=== PATIENT | female | born 1985 ===

== ENCOUNTER 2016-06-05 08:50 | Inpatient (IN) | payer OTHER ==
[~2016-06-05] VITALS: Ht 160 cm; Wt 115.7 kg
[2016-06-05 09:18] VITALS: BP 114/71
[2016-06-05 09:56] LABS: ABSOLUTE BASOPHIL COUNT 0 /CUMM (0.0-0.2); ABSOLUTE EOSINOPHIL COUNT 0.2 /CUMM (0.0-0.7); ABSOLUTE GRANULOCYTE CT 9.8 /CUMM (1.4-6.5); ABSOLUTE LYMPH COUNT 2.7 /CUMM (1.2-3.4); ABSOLUTE MONOCYTE COUNT 0.8 /CUMM (0.10-0.60); BASOPHIL % 0.2 % (0.0-2.0); EOSINOPHIL % 1.4 % (0-5); GRANULOCYTE % 72.2 % (42.2-75.2); MEAN CORPUSCULAR VOLUME 82.3 FL (81.0-99.0); MEAN PLATELET VOLUME 8.2 FL (7.4-10.4); PLATELET COUNT 285 /CUMM (130-400); RBC DISTRIBUTION WIDTH 15.2 % (11.5-14.5); RED BLOOD CELL CT 4.85 /CUMM (4.20-5.40); WHITE BLOOD CELL COUNT 13.6 /CUMM (4.8-10.8)
--- NOTE | 2016-06-05 09:56 | History & Physical ---
General Information and HPI MD Statement: I have seen and personally examined RABIA VELASQUEZ and documented this H&P. The patient is a 30 year old female at [41] weeks and [1] days gestation who presented with a chief complaint of [IOL]. Source of Information: patient Exam Limitations: no limitations History of Present Illness: 30yo, 41 1/7wks, here for IOL due to postdates. pt has no complaints today. denies afeels ctxs, no vaginal bleeidng, noLOF. care started at 9 wks, uncomplicated thus far, elevated GCT, normal GTT , normal HbA1C at 37 wks. 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 Home Who Do You Live With? spouse Primary Language: [place]al[place] Smoking Status: Former Smoker ETOH Use: denies use Illicit Drug Use: denies illicit drug use Review of Systems Review of Systems Constitutional: Reports: no symptoms. EENTM: Reports: no symptoms. Cardiovascular: Reports: no symptoms. Respiratory: Reports: no symptoms. GI: Reports: no symptoms. Genitourinary: Reports: see HPI. Musculoskeletal: Reports: no symptoms. Skin: Reports: no symptoms. Neurological/Psychological: Reports: no symptoms. Hematologic/Endocrine: Reports: no symptoms. Immunologic/Allergic: Reports: no symptoms. All Other Systems: Reviewed and Negative Date of LMP: 08/15/15 Post Menopausal: No Exam & Diagnostic Data Last 24 Hrs of Vital Signs/I&O Vital Signs Date Time Temp Pulse Resp B/P Pulse O2 O2 Flow FiO2 Ox Delivery Rate 06/05 0918 114/71 Intake & Output 06/05 1600 06/05 0800 04 0000 Intake Total Output Total Balance Patient 115.666 kg Weight Obstetric Exam Wgt Gained During : 44lbs Pelvimetry: adequate Dilation (cm): 0 Effacement (%): 60 Station: -3 Membranes: intact Fluid: unknown Fundal Height (cm): 40 Multiple Gestation? No Contractions: irregular Infant #1 - FHR Baseline: 150 Category: 1 Estimated Weight: 3500g Presentation: vertex Patient for Induction? Yes Childers Score Childers Score Response Value Cervix Position: posterior 0 Cervix Consistency: medium 1 Cervix Effacement: 60-70% 2 Cervix Dilation: closed 0 Cervix Station: -3 0 Total 3 Physical Exam: VSS abdomen: gravid, soft, nontender. Ext: DCT (-) Labs Blood Type & Rh: o positive Antibody Screen: negative Hct/Hgb & Platelets #1: 13.6/41.6%,[id number] Hct/Hgb & Platelets #2: 12.8/38.2%,[id number] Rubella: immune VDRL #1: negative VDRL #2: negative HbsAg: negative HIV #1: negative HIV #2 negative 1 Hr P 3 Hr P/179/166/119 Group B Strep: negative Initial Ultrasound: IUP at 9 wks Anatomy Ultrasound: negative Ultrasound for EFW: 7lb7oz at 38 wks Genetic Testing: normal Last 24 Hrs of Labs/Sean: Laboratory Tests 06/05/16 0923: Urine Color Pending, Urine Clarity Pending, Urine pH Pending, Ur Specific Troy Pending, Urine Protein Pending, Urine Ketones Pending, Urine Nitrite Pending, Urine Bilirubin Pending, Urine Urobilinogen Pending, Ur Leukocyte Esterase Pending, Ur Microscopic Pending, Urine Hemoglobin Pending, Urine Glucose Pending 06/05/16 0922: CBC w Diff Pending, WBC Pending, RBC Pending, Hgb Pending, Hct Pending, MCV Pending, MCH Pending, RDW Pending, Plt Count Pending, MPV Pending, PUBS MCHC Pending Assessment/Plan Assessment/Plan: 30yo, 41 1/7wks, IOL for postdates, obesity. 1. admit pt, admission labs. 2. R/B/A of IOL and misoprostol for IOL d/w pt, she undertsand. all questions answered, informed consent obtained. 1st dose of cytotec 25mcg placed into vagina at 10:45AM 3. will monitor closely As Ranked By This Provider Problem List: 1. 2. Post-dates Core Measures/Miscellaneous Venous Thromboembolism VTE Risk Factors: / VTE Contraindications: No Contraindications VTE Diagnosis: No Beta Tiana Is Beta Tiana a Home Med? No Antibiotics Is Patient on Antibiotics? No Attending MD Review Statement Attending Statement Attending MD Statement: examined this patient, discussed with family, discussed w/nursing
--- NOTE | 2016-06-05 16:07 | PN- OBGYN ---
Surgical Brief Attending Note Brief Attending Note: pt has no complaints. on TOCO: ctxs every 3-4 min. FHR cat.I VE defered will hold 2nd dose of cytotec, monitor closely
--- NOTE | 2016-06-06 09:52 | PN- OBGYN ---
Surgical Brief Attending Note Brief Attending Note: Pt slept well overnight seems patient w/ the induction plan ?? trickle of small amount of fluid overnight Afebrile VSS Abd benign no HSM nontender Uterus Gravid Est F WT 8#4 VTX irreg contractions FHR 130" baseline Cat 1 VE: amnisure taken cx 1 cm / 90 % -3 station Day #2 postdates induction BMI 45 s/p Miso on day 1 Plan ALPs when in bed Pitocin per protocal ck amnisure results NEG (Gr B Str NEG) follow closely Dede Suarez MD
--- NOTE | 2016-06-06 21:40 | PN- OBGYN ---
Surgical Brief Attending Note Brief Attending Note: update: Day #2 induction -IV Pitocin Pt progressed to 3 cm @ 15:00 and received her epidural. recheck @ 19:00 5 cm/ 100% /0 station AROM Mod meconium stained fluid Pitocin stopped after AROM to lessen the frequency of contractions @ 21:00 - FHR baseline 152 mean variability @ 8- 10 BMP CAT I. On 6 mu Pitocin contractions were Q 2 to 3 min - OFF pitocin contractions are Q 3 minutes Progress in labor: goal is 3 contractions in 10 min follow FHR closely Pedi notified of Meconium stained fluid. alireza in 2 hrs Dede Suarez MD
--- NOTE | 2016-06-06 23:16 | PN- OBGYN ---
Surgical Brief Attending Note Brief Attending Note: UPDATE: Pitocin @ 2 mu FHR 150 Cat 1 acccells with exam contractions Q 2 to 3 min CX 6 - 7 cm, min swelling @ 11 - 12 oclock IUPC placed Reassuring FHR Some progress in labor - IUPC to better assess the contraction pattern Follow closely RE- Check in 2 hrs Dede Suarez MD
--- NOTE | 2016-06-07 03:42 | PN- OBGYN ---
Surgical Brief Attending Note Brief Attending Note: UPDATE: CTSP @ 02:10 Pt very uncomfortable- increased pain w/ contractions, vaginal discomfort "due to IUPC". Mat Temp 101.5 - mat pulse > 110 bpm, and tachcardia @ 180 bpm. Pitocin @ 4 mu, contraction Q 2 min, Vag exam fully, +2/+3 station Pitocin decreased to 2 mu, Epidural bolused, IVF bolus x 500 ml, IV Ofrimev, mat O2 given, IUPC removed. Now pt more comfortable T99.8 FHR 150's baseline w/ 8 -10 BPM variabilty and accellerations plan is to try pushing in the next hour follow FHR closely. [facility] Dede Suarez MD
--- NOTE | 2016-06-07 06:43 | Labor & Delivery Summary ---
Delivery Summary Section: Section: primary Indication: Cat II tracing failure to descend Anesthesia: epidural Placenta: Placenta: normal, 3 vessel, manual Anesthesia: epidural Cord PH Value: A 7.18 V 7.28 Baby's Weight: 8# 6OZ 3800 Apgars - 1 Min: 8 Apgars - 5 Min: 8 Additional Comments: Low segment atony. EBL 1200 ml low segment extensions Pitocin , methergine, intrauterine hemabate Ambrosio O'Hungerford stitch on LT partial single layer closure NOT A candidate
--- NOTE | 2016-06-07 07:21 | Operative Report ---
Operative/Inv Procedure Report Surgery Date: 06/07/16 Name of Procedure: Primary low cervical transverse section Placement of O'Tipton stitch on the left-hand side, partial single-layer closure Pre-Operative Diagnosis: Persistent category 2 tracing, failure to descend. BMI 45 Post-Operative Diagnosis: Same plus low segment atony, patient not a candidate for due to partial single layer closure Estimated Blood Loss: 1200 ML Surgeon/Market Researcher: Nickie Suarez surgeon, media center assistant Magno FISHER Anesthesia: epidural Monitors: Blood pressure cuff EKG electrodes pulse oximeter IV Fluids: 1800 crystalloid Implants: None Urine Output: 1000 ML Drains: Harris Specimens: Placenta Microbiology: None Tourniquet: None Complications: Low segment atony, thin low uterine segment with low segment extensions Condition: Good Operative Indication: 30-year-old 2 day induction for 41+ weeks, maternal BMI of 45. Persistent category 2 tracing with failure to descend. Operative/Procedure Note Note: Patient was brought to the OR and transferred to the table. Patient was given 2 g Kefzol in the OR She was placed in dorsal supine position with a right hip wedge. From the labor room where she previously had a Harris catheter placed, and pneumatic compression boots on her lower extremities. Epidural was topped up prior to arrival in the OR. Timeout was discussed by the team and agreed upon. Patient was prepped and draped in the usual sterile fashion. After a good level of analgesia, transverse incision was made in the skin after infiltration with bupivacaine. This transverse incision was placed 2 fingerbreadths above the symphysis and was carried down to the fascia. Fascia was incised transversely. Rectus muscles divided longitudinally. The parietal peritoneum was identified elevated and entered and divided both vertically and transversely. The utero vesicular fold the bladder peritoneum was incised and the bladder was reflected inferiorly. Transverse incision was made in the low uterine segment the uterine cavity was entered bluntly meconium-stained fluid was noted. Deflexed OP presentation was noted in the pelvis. Hand was introduced into the uterus and low uterine segment had was carefully flexed and brought through the uterine incision. Mouth and nasopharynx bulb suctioned on the intra-abdominal wall. Rest of infant's body was delivered without complication at 5:11 on 06/07/2016.. Umbilical cord was triply clamped cut the infant was handed to pediatric team for evaluation I viable female weight 8 lbs. 6 oz. 3800 g Apgars 10/07/8. Arterial pH 7.18 venous pH 7.28. Placenta failed spontaneous delivery and manual extraction was performed. The uterus was exteriorized, draped with a wet lap pad. Due to anticipated low segment atony she was given a dose of Methergine and in addition to the Pitocin at 30 mU/L, with delivery of the placenta. The uterine cavity was wiped clean with a wet lap pad. The uterus was then draped with wet lap pad the uterine incision was inspected. Angles were grasped with Sousa's there was two low segment extensions 1 in the midline 1 in the right lower quadrant. Uterine incision was closed with a single-layer closure initially. There was still significant bleeding on the left-hand side near the angle of the closure of the uterine incision. O'Tipton stitch was performed on this left-hand side, and this suture stitch was tied securely. Persistent low segment atony was also noted so an intra-uterine injection of Hemabate was given. Reasonable hemostasis was noted. Partial second layer closure with interrupted suture was obtained. But due to the very thin low uterine segment below the level of the incision decision was made not to do a complete double-layer closure. There was some bleeding due to decidual tissue on the back of the uterus that was managed with Ambrosio, and more of the Ambrosio was also applied over the uterine incision to ensure reasonable hemostasis. Uterus returned the abdominal pelvic cavity, then the pelvis was irrigated and the fluid was aspirated. Second dose of the Ambrosio was utilized over the uterine incision after irrigation and evacuation of fluid. Good hemostasis continued. Parietal peritoneum was closed with running suture, rectus muscle was reapproximated midline with horizontal mattress stitch. Fascia closed with 2 separate segments of running intermittent locking suture. Subcutaneous tissue was irrigated fluid was aspirated subcutaneous tissue closed with Arron cut. Skin edges reapproximated with Monocryl. At completion of procedure sponge needle and instrument count were correct 4. Dressing was applied to the abdominal wall incision. Vaginal exam after completion the procedure showed no significant blood or clot within the vaginal vault. Patient was taken recovery room in good condition. Findings: Time of delivery 5:11 on 06/07/2017 live viable female infant 8 lbs. 6 oz. 3800 g. Apgars 8, 8, 8. Arterial pH 7.18 venous pH 7.28. Deflexed OP presentation. Significant low segment atony that ultimately responded to IV Pitocin, intramyometrial Pitocin. IM Methergine. An intrauterine Hemabate. Cervical extensions were noted in the low segment that required specialize closure. Only a partial 2 layer uterine closure was performed. Patient is not a candidate in the next EBL 1200 ML Discharge Disposition: CC: KATEY VU,JUAN
[2016-06-07 15:21] LABS: ABSOLUTE EOSINOPHIL COUNT 0 /CUMM (0.0-0.7)
[2016-06-07 15:39] LABS: ABSOLUTE BASOPHIL COUNT 0 /CUMM (0.0-0.2); ABSOLUTE GRANULOCYTE CT 17.6 /CUMM (1.4-6.5); ABSOLUTE LYMPH COUNT 2.1 /CUMM (1.2-3.4); ABSOLUTE MONOCYTE COUNT 0.9 /CUMM (0.10-0.60); BASOPHIL % 0.1 % (0.0-2.0); EOSINOPHIL % 0.2 % (0-5); GRANULOCYTE % 84.9 % (42.2-75.2); HEMATOCRIT 38.4 % (37-47); MEAN CORPUSCULAR HGB 27.8 PG (27.0-31.0); MEAN CORPUSCULAR HGB CONC 33.3 G/DL (33.0-37.0); MEAN CORPUSCULAR VOLUME 83.4 FL (81.0-99.0); MEAN PLATELET VOLUME 8.4 FL (7.4-10.4); PLATELET COUNT 259 /CUMM (130-400); RBC DISTRIBUTION WIDTH 15.8 % (11.5-14.5)
[2016-06-07 15:43] LABS: WHITE BLOOD CELL COUNT 20.7 /CUMM (4.8-10.8)
[2016-06-08 09:22] LABS: ABSOLUTE BASOPHIL COUNT 0 /CUMM (0.0-0.2); ABSOLUTE EOSINOPHIL COUNT 0.1 /CUMM (0.0-0.7); ABSOLUTE GRANULOCYTE CT 16.8 /CUMM (1.4-6.5); ABSOLUTE LYMPH COUNT 1.9 /CUMM (1.2-3.4); ABSOLUTE MONOCYTE COUNT 1.3 /CUMM (0.10-0.60); BASOPHIL % 0.2 % (0.0-2.0); EOSINOPHIL % 0.6 % (0-5); MEAN CORPUSCULAR HGB 27.6 PG (27.0-31.0); MEAN CORPUSCULAR HGB CONC 32.5 G/DL (33.0-37.0); MEAN CORPUSCULAR VOLUME 84.8 FL (81.0-99.0); MEAN PLATELET VOLUME 8.1 FL (7.4-10.4); PLATELET COUNT 243 /CUMM (130-400); RBC DISTRIBUTION WIDTH 15.7 % (11.5-14.5); RED BLOOD CELL CT 3.87 /CUMM (4.20-5.40); WHITE BLOOD CELL COUNT 20.3 /CUMM (4.8-10.8)
[2016-06-08 09:34] LABS: HEMATOCRIT 32.8 % (37-47)
--- NOTE | 2016-06-08 10:34 | PN- OBGYN ---
Surgical Brief Attending Note Brief Attending Note: POD#1 pt is resting in bed, c/o feels much better than yesterday. tolerate diet, cabrales d/c'd am, flatus (-) PE: VSS, agfebrile since midnight. CV RRR Lungs CTA B/L Abdomen: soft, nontender, BS(+), uterus firm, fundus below umbilicus, incision D /C/I, lochia mild Ext: DCT (-) A/P: 33 yo, s/p PLTCS, POD#1 1. encourage ambulation and . 2. continue IV antibiotics till 24h afebrile. 3. pain management as needed 4. RT PP care
--- NOTE | 2016-06-09 10:41 | PN- Post Delivery/GYN ---
Subjective Subjective: AMBULATING IN ROOM AND HALLWAY - OVERALL DOING MUCH BETTER EACH DAY Review of Systems: NEG FOR CARDIAC PULMONARY GI COMPLAINTS Objective Last 24 Hrs of Vital Signs/I&O T MAX 98.7 VSS Physical Exam General Appearance Alert, Oriented X3, Cooperative, No Acute Distress Skin No Significant Lesion Cardiovascular Regular Rate Lungs Normal Air Movement Abdomen Normal Bowel Sounds, Soft, No Tenderness, No Hepatospenomegaly, FUNDUS FIRM NONTENDER 3 FB BELOW UMBILICUS INCISION CLEAN DRY INTACT Neurological Normal Gait, Normal Speech Extremities No Tenderness/Swelling Reproductive (FEMALE) Normal female genitalia, AVGE LOCHIA Current Medications: Current Medications Sig/Jose Alfredo Start time Last Medication Dose Route Stop Time Status Admin Acetaminophen 650 MG Q4P PRN 06/07 1100 AC PO Acetaminophen 1,000 MG Q6P PRN 06/07 0900 AC 06/07 N/A 1 UNIT IV 1655 Ampicillin 2,000 MG .STK-MED ONE 06/08 1631 DC IM 06/08 1632 Ampicillin 2,000 MG .STK-MED ONE 06/08 1123 DC IM 06/08 1124 Ampicillin 2,000 MG Q6 06/07 1822 DC 06/08 Sodium Chloride 100 ML IV 1749 Clindamycin 900 MG Q8H 06/08 1100 DC 06/08 Dextrose/Water 50 ML IV 1845 Diphenhydramine HCl 25 MG Q6P PRN 06/07 1000 AC 06/07 IV 2304 Docusate Sodium 100 MG .STK-MED ONE 06/08 2130 DC PO 06/08 213 Docusate Sodium 100 MG AT BEDTIME NEED.. 06/07 0645 AC 06/08 PO 2132 Enoxaparin Sodium 40 MG 1900 06/07 1900 AC 06/08 SC 1953 Gentamicin Sulfate 160 MG .STK-MED ONE 06/08 1938 DC IM 06/08 1939 Gentamicin Sulfate 160 MG .STK-MED ONE 06/08 1230 DC IM 06/08 1231 Gentamicin Sulfate 100 MG Q8H 06/07 2000 DC 06/08 Dextrose/Water 100 ML IV 195 Hydroxyzine HCl 100 MG AT BEDTIME NEED.. 06/07 1100 AC PO Ibuprofen 800 MG .STK-MED ONE 06/08 2329 DC PO 06/08 2330 Ibuprofen 800 MG .STK-MED ONE 06/08 1840 DC PO 06/08 1841 Ibuprofen 800 MG .STK-MED ONE 06/08 1243 DC PO 06/08 1244 Ibuprofen 800 MG Q6P PRN 06/07 0645 AC 06/09 PO 0545 Ketorolac 30 MG Q6P PRN 06/07 1600 DC Tromethamine IV 06/08 1559 Lactated Ringer's 1,000 ML Q8H 06/07 0645 AC 06/08 IV 0249 Magnesium Hydroxide 30 ML DAILY NEEDED PRN 06/07 0645 AC PO 06/10 0646 Metoclopramide HCl 10 MG Q6P PRN 06/07 1000 AC IV Naloxone HCl 0.2 MG .Q5 MIN PRN 06/07 1000 AC IV Oxycodone/ 1 TAB Q4P PRN 06/07 0645 AC 06/09 Acetaminophen PO 0545 Oxycodone/ 2 TAB Q4P PRN 06/07 0645 AC 06/08 Acetaminophen PO 0817 Imaging Findings: N/A Assessment/Plan Assessment/Plan STABLE POD #2 AFEBRILE OFF ANTIBIOTIC CONTINUE INCREASING AMBULATION, PO PAIN MEDS, LOVENOX LIKELY HOME IN AM IF REMAINS AFEBRILE Problem List: 1. 2. Post-dates 3. Class 3 obesity with alveolar hypoventilation and body mass index (BMI) 45.0 to 49.9 in adult 4. Failed induction, delivered, current hospitalization 5. delivery delivered 6. Postoperative fever 7. Anemia associated with acute blood loss 8. atony of uterus with hemorrhage Attending MD Review Statement Attending Statement Attending MD Statement: examined this patient, discussed with family, reviewed EMR data (avail), discussed with nursing Attending Assessment/Plan: Dede TEE MD
[2016-06-10] MEDS ORDERED: PERCOCET 5-3251 EACH PO (08:27)
[2016-06-10] MEDS ORDERED: IBUPROFEN800 M1 PO (08:27)
--- NOTE | 2016-06-10 08:30 | PN- OBGYN ---
Surgical Brief Attending Note Brief Attending Note: POD#3 pt is resting in bed, no complaints, tolerate diet, void without difficulties. flatus(+) PE: VSS CV RRR Lungs CTA B/L Abdomen: soft, nontender, uterus firm, fundus below umbilicus. incision D/C/I, Lochia mild Ext: DCT (-), edema + A/P: 30yo, s/p PLTCS, POD#3 1. encourage ambulation, encourage 2. pain management as needed 3. will d/c home , f/u in office in 2 wks and 6 wks. 4. RT PP care
--- NOTE | 2016-06-11 14:31 | Discharge Summary ---
Visit Information Visit Dates Admission Date: 06/05/16 Discharge Date: 06/10/16 Hospital Course Course Attending Physician: KATEY VU,JUAN Primary Care Physician: JOLANTA VU,MIKI [facility] Hospital Course: The patient is a 30 year old female at [41] weeks and [1] days gestation who presented with a chief complaint of [IOL]. Issues for this #1 postdates at 41 weeks 1/7 days #2 maternal BMI of 45 #3 negative shoulder screen Patient was admitted on 06/05/2016 for induction of labor. Patient received misoprostol, and had mild contractions following placement of the intravaginal medication. Patient rested overnight and on the morning of 06/06/2016 was started on Pitocin induction. Due to her BMI of 45 patient was placed in Alps during her Pitocin induction. Pt progressed to 3 cm @ 15:00 and received her epidural. recheck @ 19:00 5 cm/ 100% /0 station AROM Mod meconium stained fluid Pitocin stopped after AROM to lessen the frequency of contractions. Pitocin restarted per protocal when contractions spaced out again. CTSP @ 02:10 Pt very uncomfortable- increased pain w/ contractions, vaginal discomfort "due to IUPC". Mat Temp 101.5 - mat pulse > 110 bpm, and tachcardia @ 180 bpm. Pitocin @ 4 mu, contraction Q 2 min, Vag exam fully, +2/+3 station Pitocin decreased to 2 mu, Epidural bolused, IVF bolus x 500 ml, IV Ofrimev, mat O2 given, IUPC removed. Now pt more comfortable T99.8 FHR 150's baseline w/ 8 -10 BPM variabilty and accellerations plan is to try pushing in the next hour 04:15 06/07/2016, ELEVATION FHR TO 160-170 LOSS OF VARIABILITY. Contractions Q 3 min (pit @ 2 mu) Pt Afebrile VSS Vag exam +2/+3 - attempt @ pushing not successful - pt not able to properly push x 4 contractions. pitocin discontinued Concerning/ nonreassuring (Category II) FHR, s/p 2 hrs of laboring down. no descent of the VTX in the interim and pt not likely to push and deliver vaginally for the next 2 hrs or so. Pt is adequately hydrated, remains afebrile, has had maternal O2 for the last several hours, so there no further conservative measures to be utilized, to improve a category II tracing - so pt advised for C/ S at this point. Pt and partner agree. Cesarian section performed. Delivery @ 05:11 on 06/07/2016. Live viable female infant weight 8 lbs. 6 oz. 3800 g Apgars 8, 8, and 8. At time of delivery the baby was found to be in a deflexed OP presentation with thick meconium stained fluid was noted in the OR. The baby was handed to pediatric team for evaluation. Cord pH arterial 7.18 venous 7.28. After delivery of the placenta the uterus was exteriorized. Uterine incision showed significant atony of the low segment that initially responded to IV Pitocin intramyometrial Pitocin and IM Methergine. Uterine incision showed to cervical extensions 1 in the midline 1 on the right lateral edge of the uterine incision. The uterine incision was closed with initially a single layer running locking. There was evidence of continued low segment atony so there was an intramyometrial injection of Hemabate given. The low uterine segment was quite thin and friable so there could not be a full double layer closure. Erupted mattress sutures were used to try to bring a partial 2 layer closure. There was still continued bleeding near the left side of the uterine incision so a O'Pembroke stitch was placed on the left-hand side. Abmrosio 2 was used for hemostasis for small bleeding sites. Following closure of the abdominal wall incision patient was stable. At this point we had good hemostasis, at all levels of closure. EBL was around 1300 ML. Patient was hemodynamically dynamically stable and transferred to the area. Due to her BMI of 45 patient was maintained on Alps compression boots anytime the patient was in her hospital bed and was placed on Lovenox, 40 mg daily, starting 12 hours after delivery. In the first 12 hours postoperatively patient had a fever 101.6 so she was started on triple antibiotics. Triple antibiotics were continued until the evening of postop day #11 at that point she had been afebrile for greater than 24 hours on antibiotics. Her admission hemoglobin hematocrit was 13.6/40 postop day 1 she was 10.7 over 32.8 which was stable. Patient remained hemodynamically stable postoperatively and never required blood transfusion. By the third postoperative day she had remained afebrile, she had been easily advanced to regular diet and had full return of GI function. Her pain was controlled with by mouth pain meds. Her incision remained clean dry and intact without erythema or induration or drainage and her lochia was average. Complications: Postop fever Low segment uterine atony resulting in hemorrhage Allergies: Coded Allergies: No Known Allergies (06/05/16) Significant Procedures: 06/07/2016 primary low cervical transverse section, only a partial double layer closure, patient would not be a candidate in future pregnancies. Placement of a left-sided O'Pembroke stitch due to continued bleeding. Pertinent Lab Results: Admission hemoglobin hematocrit 13 point 6/40 normal platelet count postop day 1 hemoglobin hematocrit 10.7/32.8 with a normal platelet count Disposition Summary Disposition Principal Diagnosis: Term live child delivered Additional Diagnosis: Postdates medical induction failed. BMI of 45 Low segment uterine atony with hemorrhage Postop fever Anemia due to acute blood loss Discharge Disposition: home or self care Discharge Instructions General Discharge Information Code Status: Full Code Patient's Diet: Regular Patient's Activity: Self-limited to full activities by 6 weeks. Patient was advised for no abdominal exercises for 6 weeks Follow-Up Instructions/Appts: Patient will be seen in 2 and 6 weeks . Pelvic rest 6 weeks Medications at Discharge Discharge Medications: Start taking the following new medications: Ibuprofen (Ibuprofen) 800 MG TABLET 800 Milligram ORAL EVERY SIX HOURS NEEDED as needed for UTERINE CRAMPING Qty = 30 No Refills Comments: Last Taken:06/10/16 Time:641 Oxycodone HCl/Acetaminophen (Percocet 5-325 MG Tablet) 5 MG-325 MG TABLET 2 Tablet ORAL EVERY 4 HOURS NEEDED as needed for PAIN SCALE 7-10 (SEVERE) Qty = 30 No Refills Comments: Last Taken:06/10/16 Time:641 Copies To: KATEY VU,JUAN
--- NOTE | 2016-06-11 14:41 | PN- OBGYN ---
Surgical Brief Attending Note Brief Attending Note: 04:15 06/07/2016, ELEVATION FHR TO 160-170 LOSS OF VARIABILITY. Contractions Q 3 min (pit @ 2 mu) Pt Afebrile VSS Vag exam +2/+3 - attempt @ pushing not successful - pt not able to properly push x 4 contractions. pitocin discontinued Concerning/ nonreassuring (Category II) FHR, s/p 2 hrs of laboring down. no descent of the VTX in the interim and pt not likely to push and deliver vaginally for the next 2 hrs or so. Pt is adequately hydrated, remains afebrile, has had maternal O2 for the last several hours, so there no further conservative measures to be utilized, to improve a category II tracing - so pt advised for C/ S at this point. Pt and partner agree. Dede Suarez MD
== END 2016-06-10 11:15 | DRG 766 ==
LOC: GNO 08:50
PROVIDERS: Obstetrics & Gynecology; ADMIT Obstetrics & Gynecology
PROC: 3E033VJ Introduction of Other Hormone into Peripheral Vein, Percutaneous Approach (ICD-10-PCS; 2016-06-05)
PROC: 10D00Z1 Extraction of Products of Conception, Low, Open Approach (ICD-10-PCS; principal; 2016-06-07)
DX: O48.1 Prolonged pregnancy (principal); O64.0XX0 Obstructed labor due to incomplete rotation of fetal head, not applicable or unspecified; Z3A.49 Greater than 42 weeks gestation of pregnancy; Z37.0 Single live birth; O62.2 Other uterine inertia; Z87.891 Personal history of nicotine dependence
CPT/HCPCS: GNOP; GNOS; 36415; 81001; 84112; 86920; 87086; 88307; J0131; J0290; J0595; J0690; J1200; J1580; J1650; J1885; J2210; J3490; J7120